=== PATIENT | male | born 1975 | race Caucasian/White ===

== ENCOUNTER 2018-07-03 15:44 | Emergency (ER) | payer OTHER ==
[2018-07-03 15:49] VITALS: BP 147/98; PULSE 100; RESP 18; TEMP 98.2
--- NOTE | 2018-07-03 16:35 | ED ---
General Adult HPI - General Chief complaint: Skin/Abscess/Foreign Body Stated complaint: bump on hand Time Seen by Provider: 07/03/18 15:51 Source: patient, RN notes reviewed, old records reviewed Mode of arrival: ambulatory Limitations: no limitations - History of Present Illness Initial comments: 43-year-old male patient no pertinent past medical history presents to ED with a painful mass in his right hand between his first and second digit and in the interwebbing. Patient states that is mildly tender to the touch. Patient denies any erythema, drainage, any other areas of pain. Patient has full range of motion hand. Patient has no other complaints. Systemic: Pt denies fatigue, fever/chills, rash. Pt denies weakness, night sweats, weight loss. Neuro: Pt denies headache, visual disturbances, syncope or pre-syncope. HEENT: Pt denies ocular discharge or irritation, otalgia, rhinorrhea, pharyngitis or notable lymphadenopathy. Cardiopulmonary: Pt denies chest pain, SOB, heart palpitations, dyspnea on exertion. Abdominal/GI: Pt denies abdominal pain, n/v/d. : Pt denies dysuria, burning w/ urination, frequency/urgency. Denies new onset urinary or bowel incontinence. MSK: Pt denies loss of strength or function in extremities. Neuro: Pt denies new onset weakness, paresthesias. - Related Data Previous Rx's Medication Instructions Recorded Ibuprofen [Motrin] 600 mg PO Q6HR PRN #40 day 07/03/18 Allergies Allergy/AdvReac Type Severity Reaction Status Date / Time No Known Allergies Allergy Verified 07/03/18 15:49 Review of Systems ROS Statement: Those systems with pertinent positive or pertinent negative responses have been documented in the HPI. ROS Other: All systems not noted in ROS Statement are negative. Past Medical History Past Medical History: Hypertension History of Any Multi-Drug Resistant Organisms: None Reported Past Surgical History: No Surgical Hx Reported Past Psychological History: No Psychological Hx Reported Smoking Status: Current every day smoker Past Alcohol Use History: Rare Past Drug Use History: None Reported General Exam - General Exam Comments Initial Comments: Constitutional: NAD, AOX3, Pt has pleasant affect. HEENT: NC/AT, trachea midline, neck supple, no lymphadenopathy. Posterior pharynx non erythematous, without exudates. External ears appear normal, without discharge. Mucous membranes moist. Eyes PERRLA, EOM intact. There is no scleral icterus. No pallor noted. Cardiopulmonary: RRR, no murmurs, rubs or gallops, no JVD noted. Lungs CTAB in anterior and posterior garzon. No peripheral edema. Abdominal exam: Abdomen soft and non-distended. Abdomen non-tender to palpation in all 4 quadrants. Bowel sounds active in LLQ. No hepatosplenomegaly. No ecchymosis Neuro: CN II-XII grossly intact. No nuchal rigidity. MSK: Approximately 2 cm soft mass noted on right hand between first and second digit, it is reducible, mildly tender to palpation, no erythema warmth or discharge. Patient does have some tenderness at the MCP joint of his thumb. Patient has no other areas of tenderness and hand. No erythema or warmth and hand. Sensation intact, capillary refill less than 2 seconds. No posterior calf tenderness bilaterally, homans sign negative bilaterally. Posterior tibialis and radial pulse +2 bilaterally. Sensation intact in upper and lower extremities. Full active ROM in upper and lower extremities, 5/5 stregnth. Limitations: no limitations Course Vital Signs 07/03/18 07/03/18 15:46 17:17 Temperature 98.2 F 98.2 F Pulse Rate 100 100 Respiratory 18 18 Rate Blood Pressure 147/98 147/98 O2 Sat by Pulse 97 97 Oximetry Medical Decision Making - Medical Decision Making 43-year-old male patient no pertinent past medical history presents to ED with a painful mass in his right hand between his first and second digit and in the interwebbing. Patient states that is mildly tender to the touch. Patient denies any erythema, drainage, any other areas of pain. Patient has full range of motion hand. Patient has no other complaints. Pt VSS, afebrile. Physical exam displayed: Approximately 2 cm soft mass noted on right hand between first and second digit, it is reducible, mildly tender to palpation, no erythema warmth or discharge. Patient does have some tenderness at the MCP joint of his thumb. Patient has no other areas of tenderness and hand. No erythema or warmth and hand. Sensation intact, capillary refill less than 2 seconds. 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 Findings were explained to patient length. Patient verbalized understanding. Patient to follow up with hand surgeon. Patient additionally referred to primary care provider. Patient will call these referrals tomorrow. Discussed parameters for patient to return to ED, patient verbalized understanding. Case discussed with Dr. Quiroz. Disposition Clinical Impression: Cyst Disposition: HOME SELF-CARE Condition: Stable Instructions (If sedation given, give patient instructions): Osteoarthritis (ED ) Additional Instructions: Patient to adhere to previously discussed treatment plan and will take medication(s) as directed. Patient to follow up with PCP in 1-2 days. Patient to return to ED if symptoms do not improve. Prescriptions: Ibuprofen [Motrin] 600 mg PO Q6HR PRN #40 day PRN Reason: Pain Is patient prescribed a controlled substance at d/c from ED?: No Referrals: None,Stated [Primary Care Provider] - 1-2 days [facility] Cl[facility]rios [NON-STAFF] - 1-2 days Barry Sanford DO [Medical Doctor] - 1-2 days Time of Disposition: 17:06
--- NOTE | 2018-07-03 16:38 | XR ---
Left hand HISTORY: Probable lump between first and second digits 3 views of the left hand Joint spaces and alignment are maintained. No radiopaque foreign body. 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 There is some remodeling of the radiocarpal joint. No fracture or disl ocation. IMPRESSION: Mild arthropathy changes.
== END 2018-07-03 17:19 | disposition home or self-care (01) ==
LOC: EC 15:44
DX: L72.9 Follicular cyst of the skin and subcutaneous tissue, unspecified (principal); F17.200 Nicotine dependence, unspecified, uncomplicated
CPT/HCPCS: 99283

== ENCOUNTER 2018-08-08 18:22 | Emergency (ER) | payer OTHER ==
[2018-08-08 18:30] VITALS: TEMP 97.7
[2018-08-08] MEDS ORDERED: SODIUM CHLORIDE 0.9% 2,000 ML IV ONE (18:44)
[2018-08-08] MEDS ORDERED: SODIUM CHLORIDE 0.9% 1,000 ML IV SCH (18:45)
[2018-08-08] MEDS: SODIUM CHLORIDE 0.9% 1,000 ML IV SCH ×2 (18:58→18:59)
[2018-08-08] MEDS ORDERED: SODIUM CHLORIDE 0.9% 1,000 ML with MVI, ADULT NO.4 WITH VIT K 10 ML, THIAMINE 100 MG, F... IV ONE ×4 (19:00)
[2018-08-08 19:34] LABS: ALT 21 U/L (21-72); AST 30 U/L (17-59); Alkaline Phosphatase 55 U/L (38-126); Amylase 56 U/L (30-110); Anion Gap 9 mmol/L; Blood Urea Nitrogen 8 mg/dL (9-20); Calcium 8.5 mg/dL (8.4-10.2); Carbon Dioxide 27 mmol/L (22-30); Chloride 110 mmol/L (98-107); Glucose 98 mg/dL (74-99); Lipase 61 U/L (23-300); Magnesium 2.1 mg/dL (1.6-2.3); Potassium 4.2 mmol/L (3.5-5.1); Sodium 146 mmol/L (137-145); Total Bilirubin 0.3 mg/dL (0.2-1.3); Total Protein 6.1 g/dL (6.3-8.2)
--- NOTE | 2018-08-08 19:36 | ED ---
Alcohol HPI - General Source: patient, RN notes reviewed, old records reviewed Mode of arrival: EMS Limitations: no limitations <Dana Lane - Last Filed: 08/08/18 19:33> <Urmila Tellez - Last Filed: 08/09/18 00:57> - General Chief Complaint: Alcohol Stated Complaint: ETOH Time Seen by Provider: 08/08/18 18:23 - History of Present Illness Initial Comments: Patient is a 43-year-old male presents emergency department today after being found on the streets with chief complaint of alcohol intoxication. Patient reports that he is currently homeless and staying at a [facility]. Patient has had no nausea or vomiting. He denies any falls or head injury. Patient states that he does not drink daily. Patient states that he has had 2 fifths of alcohol today. (Dana Lane) - Related Data Home Medications Medication Instructions Recorded Confirmed No Known Home Medications 08/08/18 08/08/18 Allergies Allergy/AdvReac Type Severity Reaction Status Date / Time No Known Allergies Allergy Verified 08/08/18 18:42 Review of Systems ROS Other: All systems not noted in ROS Statement are negative. <Dana Lane - Last Filed: 08/08/18 19:33> ROS Other: All systems not noted in ROS Statement are negative. <Urmila Tellez - Last Filed: 08/09/18 00:57> ROS Statement: Those systems with pertinent positive or pertinent negative responses have been documented in the HPI. Past Medical History Past Medical History: Hypertension History of Any Multi-Drug Resistant Organisms: None Reported Past Surgical History: No Surgical Hx Reported Past Psychological History: No Psychological Hx Reported Smoking Status: Current every day smoker Past Alcohol Use History: Occasional Past Drug Use History: None Reported <Dana Lane - Last Filed: 08/08/18 19:33> General Exam Limitations: no limitations General appearance: alert, appears intoxicated Head exam: Present: atraumatic, normocephalic, normal inspection Eye exam: Present: normal appearance, PERRL, EOMI. Absent: scleral icterus, conjunctival injection, periorbital swelling ENT exam: Present: normal exam, mucous membranes moist Neck exam: Present: normal inspection. Absent: tenderness, meningismus, lymphadenopathy Respiratory exam: Present: normal lung sounds bilaterally. Absent: respiratory distress, wheezes, rales, rhonchi, stridor Cardiovascular Exam: Present: regular rate, normal rhythm, normal heart sounds. Absent: systolic murmur, diastolic murmur, rubs, gallop, clicks GI/Abdominal exam: Present: soft, normal bowel sounds. Absent: distended, tenderness, guarding, rebound, rigid Extremities exam: Present: normal inspection, full ROM, normal capillary refill. Absent: tenderness, pedal edema, joint swelling, calf tenderness Back exam: Present: normal inspection Neurological exam: Present: alert, oriented X3, CN II-XII intact Psychiatric exam: Present: normal affect, normal mood Skin exam: Present: warm, dry, intact, normal color. Absent: rash <Dana Lane - Last Filed: 08/08/18 19:33> - General Exam Comments Initial Comments: This is a 43-year-old male. Alert and oriented. No distress. (Dana Lane) Course Vital Signs 08/08/18 08/08/18 18:24 18:29 Temperature 97.7 F Pulse Rate 88 Respiratory 18 Rate Blood Pressure 122/89 O2 Sat by Pulse 98 Oximetry Medical Decision Making - Radiology Data Radiology results: report reviewed <Dana Lane - Last Filed: 08/08/18 19:33> - Lab Data Result diagrams: 08/08/18 19:10 08/08/18 19:10 <Urmila Tellez - Last Filed: 08/09/18 00:57> - Medical Decision Making Patient is a 43-year-old male presents raise department today for alcohol intoxication. He is currently staying at a [facility]. Patient is acutely intoxicated. No head or neck injuries. He is alert and talkative. Lab work was obtained. Given 2 L bolus and started on banana bag. (Dana Lane) 43-year-old male patient presented to the emergency department today for alcohol intoxication. He was sober at 0030. Upon reevaluation he is alert and does frequently being discharged at this time. He is instructed to follow-up with his primary care physician as needed. Return parameters discussed in detail. He verbalizes understanding and agrees with this plan. (Urmila Tellez) - Lab Data Lab Results 08/08/18 08/08/18 Range/Units 19:10 19:10 WBC 4.5 (3.8-10.6) k/uL RBC 4.59 (4.30-5.90) m/uL Hgb 14.3 (13.0-17.5) gm/dL Hct 43.7 (39.0-53.0) % MCV 95.4 (80.0-100.0) fL MCH 31.2 (25.0-35.0) pg MCHC 32.7 (31.0-37.0) g/dL RDW 12.9 (11.5-15.5) % Plt Count 170 (150-450) k/uL Neutrophils % (Manual) 43 % Lymphocytes % (Manual) 46 % Monocytes % (Manual) 9 % Eosinophils % (Manual) 2 % Neutrophils # (Manual) 1.94 (1.3-7.7) k/uL Lymphocytes # (Manual) 2.07 (1.0-4.8) k/uL Monocytes # (Manual) 0.41 (0-1.0) k/uL Eosinophils # (Manual) 0.09 (0-0.7) k/uL Nucleated RBCs 0 (0-0) /100 WBC Manual Slide Review Performed Sodium 146 H (137-145) mmol/L Potassium 4.2 (3.5-5.1) mmol/L Chloride 110 H (98-107) mmol/L Carbon Dioxide 27 (22-30) mmol/L Anion Gap 9 mmol/L BUN 8 L (9-20) mg/dL Creatinine 0.67 (0.66-1.25) mg/dL Est GFR (CKD-EPI)AfAm >90 (>60 ml/min/1.73 sqM) Est GFR (CKD-EPI)NonAf >90 (>60 ml/min/1.73 sqM) Glucose 98 (74-99) mg/dL Calcium 8.5 (8.4-10.2) mg/dL Magnesium 2.1 (1.6-2.3) mg/dL Total Bilirubin 0.3 (0.2-1.3) mg/dL AST 30 (17-59) U/L ALT 21 (21-72) U/L Alkaline Phosphatase 55 (38-126) U/L Total Protein 6.1 L (6.3-8.2) g/dL Albumin 4.0 (3.5-5.0) g/dL Amylase 56 (30-110) U/L Lipase 61 (23-300) U/L Disposition <Dana Lane - Last Filed: 08/08/18 19:33> Is patient prescribed a controlled substance at d/c from ED?: No Time of Disposition: 00:50 <Urmila Tellez - Last Filed: 08/09/18 00:57> Clinical Impression: Alcohol intoxication Disposition: HOME SELF-CARE Condition: Good Instructions (If sedation given, give patient instructions): Alcohol Intoxication (ED) Additional Instructions: Follow-up with your primary care physician as needed. Return to the emergency department for any new, worsening, or concerning symptoms Referrals: None,Stated [Primary Care Provider] - 1-2 days
[2018-08-08 19:41] LABS: HCT 43.7 % (39.0-53.0); HGB 14.3 gm/dL (13.0-17.5); MCH 31.2 pg (25.0-35.0); MCHC 32.7 g/dL (31.0-37.0); MCV 95.4 fL (80.0-100.0); Platelet Count 170 k/uL (150-450); RBC 4.59 m/uL (4.30-5.90); RDW 12.9 % (11.5-15.5); WBC 4.5 k/uL (3.8-10.6)
[2018-08-08 20:11] LABS: Eosinophils # (M) 0.09 k/uL (0-0.7); Lymphocytes # (M) 2.07 k/uL (1.0-4.8); Monocytes # (M) 0.41 k/uL (0-1.0); Neutrophils # (M) 1.94 k/uL (1.3-7.7); Neutrophils % (M) 43 %; Nucleated Red Blood Cells 0 /100 WBC (0-0); Total Cells Counted 100
[2018-08-09 01:09] VITALS: BP 102/60; PULSE 82; RESP 16
== END 2018-08-09 01:08 | disposition home or self-care (01) ==
LOC: EC 18:22
DX: F10.129 Alcohol abuse with intoxication, unspecified (principal); F17.200 Nicotine dependence, unspecified, uncomplicated; Z59.0 Homelessness
CPT/HCPCS: 36415; 80053; 82150; 83690; 83735; 85025; 99284; 96365; 96366 ×5; J3411

== ENCOUNTER 2018-10-07 12:10 | Emergency (ER) | payer OTHER ==
[2018-10-07 12:19] VITALS: TEMP 98.1
--- NOTE | 2018-10-07 12:25 | ED ---
Chest Pain HPI - General Chief Complaint: Chest Pain Stated Complaint: chest pain Time Seen by Provider: 10/07/18 12:23 Source: patient, RN notes reviewed, old records reviewed Mode of arrival: ambulatory Limitations: no limitations - History of Present Illness Initial Comments: This is a 43-year-old male the ER for evaluation. Patient has history of high blood pressure coming in for palpitations and chest pain. Patient feels like his heart is racing. No shortness of breath no diaphoresis currently no recent change in medications no drugs blood patient does admit to significant alcohol use last night, does feel dehydrated. MD Complaint: chest pain -: hour(s) Onset: during rest Pain Location: left chest Severity: mild Severity scale (1-10): 2 Quality: aching Consistency: constant Improves With: nothing Worsens With: nothing Anginal Symptoms: dyspnea Other Symptoms: palpitations Treatments Prior to Arrival: none - Related Data Home Medications Medication Instructions Recorded Confirmed Aspirin EC [Ecotrin Low Dose] 81 mg PO DAILY 10/07/18 10/07/18 Allergies Allergy/AdvReac Type Severity Reaction Status Date / Time No Known Allergies Allergy Verified 10/07/18 13:34 Review of Systems ROS Statement: Those systems with pertinent positive or pertinent negative responses have been documented in the HPI. ROS Other: All systems not noted in ROS Statement are negative. EKG Findings - EKG Comments: EKG Findings:: EKG shows sinus tachycardia rate of 112, [place] 150, QRS 02, QTc 452 Past Medical History Past Medical History: Hypertension History of Any Multi-Drug Resistant Organisms: None Reported Past Surgical History: No Surgical Hx Reported Past Psychological History: No Psychological Hx Reported Smoking Status: Current every day smoker Past Alcohol Use History: Occasional Past Drug Use History: None Reported General Exam Limitations: no limitations General appearance: alert, in no apparent distress Head exam: Present: atraumatic, normocephalic, normal inspection Eye exam: Present: normal appearance, PERRL, EOMI. Absent: scleral icterus, conjunctival injection, periorbital swelling ENT exam: Present: normal exam, mucous membranes moist Neck exam: Present: normal inspection. Absent: tenderness, meningismus, lymphadenopathy Respiratory exam: Present: normal lung sounds bilaterally. Absent: respiratory distress, wheezes, rales, rhonchi, stridor Cardiovascular Exam: Present: normal rhythm, tachycardia, normal heart sounds. Absent: systolic murmur, diastolic murmur, rubs, gallop, clicks GI/Abdominal exam: Present: soft, normal bowel sounds. Absent: distended, tenderness, guarding, rebound, rigid Extremities exam: Present: normal inspection, full ROM, normal capillary refill. Absent: tenderness, pedal edema, joint swelling, calf tenderness Back exam: Present: normal inspection Neurological exam: Present: alert, oriented X3, CN II-XII intact Psychiatric exam: Present: normal affect, normal mood Skin exam: Present: warm, dry, intact, normal color. Absent: rash Course Vital Signs 10/07/18 10/07/18 12:17 13:30 Temperature 98.1 F Pulse Rate 111 H 82 Respiratory 20 18 Rate Blood Pressure 126/78 132/89 O2 Sat by Pulse 96 98 Oximetry - Reevaluation(s) Reevaluation #1: 10/07/18 12:59 Medical records reviewed Chest Pain MDM - MDM 43 male presenting with palpitations and shortness of breath, patient does admit to alcohol intoxication last night, heart rate significantly improved with fluids here in the ER patient can be discharged home Disposition Clinical Impression: Tachycardia, Palpitations Disposition: HOME SELF-CARE Condition: Good Instructions (If sedation given, give patient instructions): Heart Palpitations (ED) Is patient prescribed a controlled substance at d/c from ED?: No Referrals: None,Stated [Primary Care Provider] - 1-2 days
[2018-10-07 13:00] LABS: Basophils # (A) 0.1 k/uL (0-0.2); Basophils % (A) 1 %; Eosinophils # (A) 0.1 k/uL (0-0.7); Eosinophils % (A) 2 %; HCT 44.7 % (39.0-53.0); HGB 14.7 gm/dL (13.0-17.5); Lymphocytes # (A) 1.7 k/uL (1.0-4.8); Lymphocytes % (A) 27 %; MCH 30.6 pg (25.0-35.0); MCHC 32.8 g/dL (31.0-37.0); MCV 93.2 fL (80.0-100.0); Mean Platelet Volume 7.6; Monocytes # (A) 0.3 k/uL (0-1.0); Monocytes % (A) 5 %; Neutrophils # (A) 4.1 k/uL (1.3-7.7); Neutrophils % (A) 64 %; Platelet Count 182 k/uL (150-450); RBC 4.79 m/uL (4.30-5.90); RDW 14.7 % (11.5-15.5); WBC 6.5 k/uL (3.8-10.6)
[2018-10-07] MEDS ORDERED: SODIUM CHLORIDE 0.9% 1,000 ML IV STA ×2 (13:03)
[2018-10-07] MEDS ORDERED: SODIUM CHLORIDE 0.9% 500 ML 500 ML IV STA (13:03)
[2018-10-07 13:10] LABS: ALT 20 U/L (21-72); AST 35 U/L (17-59); Albumin 4.4 g/dL (3.5-5.0); Alkaline Phosphatase 64 U/L (38-126); Anion Gap 13 mmol/L; Blood Urea Nitrogen 9 mg/dL (9-20); Calcium 9.2 mg/dL (8.4-10.2); Carbon Dioxide 21 mmol/L (22-30); Chloride 108 mmol/L (98-107); Glucose 101 mg/dL (74-99); Lipase 55 U/L (23-300); Magnesium 1.6 mg/dL (1.6-2.3); Potassium 3.9 mmol/L (3.5-5.1); Sodium 142 mmol/L (137-145); Total Bilirubin 0.5 mg/dL (0.2-1.3); Total Protein 6.7 g/dL (6.3-8.2)
[2018-10-07 13:12] LABS: D-Dimer 0.36 mg/L FEU (<0.60); INR 0.9 (<1.2); Partial Thromboplastin Time 24.4 sec (22.0-30.0); Prothrombin Time 9.5 sec (9.0-12.0)
--- NOTE | 2018-10-07 13:13 | XR ---
EXAMINATION TYPE: XR chest 2V DATE OF EXAM: 10/07/2018 COMPARISON: NONE HISTORY: Chest pain TECHNIQUE: Frontal and lateral views of the chest are obtained. FINDINGS: There is no focal air space opacity, pleural effusion, or pneumothorax seen. The cardiac silhouette size is within normal limits. The osseous structures are intact. There are overlying car diac leads. Prominent lung volume could be indicative of underlying COPD. IMPRESSION: No acute cardiopulmonary process.
[2018-10-07 13:37] VITALS: RESP 18
[2018-10-07 15:34] VITALS: BP 136/87; PULSE 96
== END 2018-10-07 15:34 | disposition home or self-care (01) ==
LOC: EC 12:10
DX: R00.2 Palpitations (principal); R00.0 Tachycardia, unspecified; F10.129 Alcohol abuse with intoxication, unspecified; I10 Essential (primary) hypertension; F17.200 Nicotine dependence, unspecified, uncomplicated; Z79.82 Long term (current) use of aspirin
CPT/HCPCS: 36415; 71046; 80053; 83690; 83735; 83880; 84484; 85025; 85379; 85610; 85730; 93005; 96360; 96361; 99285

== ENCOUNTER 2019-01-29 19:13 | Emergency (ER) | payer OTHER ==
[2019-01-29] MEDS ORDERED: THIAMINE 100 MG/ML 2 ML VIAL IM STA (19:37)
[2019-01-29] MEDS ORDERED: MULTIVITAMINS, THERA 1 EACH TAB PO STA (19:37)
[2019-01-29] MEDS ORDERED: FOLIC ACID 1 MG TAB PO STA (19:37)
[2019-01-29] MEDS ORDERED: SODIUM CHLORIDE 0.9% 1,000 ML IV STA (19:37)
[2019-01-29] MEDS ORDERED: NALOXONE 0.4 MG/ML 1 ML VIAL IV STA (19:40)
--- NOTE | 2019-01-29 19:40 | ED ---
General Adult HPI - General Chief complaint: Alcohol Stated complaint: ETOH Time Seen by Provider: 01/29/19 19:21 Source: patient, police, EMS Mode of arrival: EMS Limitations: no limitations - History of Present Illness Initial comments: Dictation was produced using [employer] dictation software. please excuse any grammatical, word or spelling errors. Chief Complaint: 43-year-old male presents with EtOH intoxication. History of Present Illness: 43-year-old male. Patient has past medical history hypertension is brought in by EMS and law enforcement for EtOH intoxication. It is unclear how patient rather emergency department. He states he drinks heavily every day. Patient has no other complaints at this time. Denies any fall. His friends brought to the emergency department for opiate overdose. Patient denies any respiratory distress at this time. He denies any drug use. The ROS documented in this emergency department record has been reviewed and confirmed by me. Those systems with pertinent positive or negative responses have been documented in the HPI. All other systems are other negative and/or noncontributory. PHYSICAL EXAM: General Impression: Alert and oriented x3, not in acute distress was EtOH HEENT: Normocephalic atraumatic, extra-ocular movements intact, pupils equal and reactive to light bilaterally, mucous membranes moist. Cardiovascular: Heart regular rate and rhythm, S1&S2 audible, no murmurs, rubs or gallops Chest: Lungs clear to auscultation bilaterally, no rhonchi, no wheeze, no rales Abdomen: Bowel sounds present, abdomen soft, non-tender, non-distended, no organomegaly Musculoskeletal: Pulses present and equal in all extremities, no peripheral edema Motor: no focal deficits noted Neurological: CN II-XII grossly intact, no focal motor or sensory deficits noted Skin: Intact with no visualized rashes Psych: Normal affect and mood ED course: 43 y Old male presents with EtOH intoxication. Signs upon arrival are within acceptable limits. Clinical presentation not consistent with opiate toxidrome. He does however appear significantly EtOH intoxicated. His examin ation is grossly benign. After evaluation obtained. CBC unremarkable. Sodium 147 is given intravenous fluids. Patient also given thiamine, folic acid multivitamin. Patient's alcohol is 296. Rest metabolic panel is unremarkable. Patient given some negative with no changes in mental status. Given patient's degree of intoxication will admit patient to inpatient. scheduled CIWA scale ordered. discussed patient case with Suzanna Puente of Dr. Zimmer's group was on 2 separate patient care. - Related Data Home Medications Medication Instructions Recorded Confirmed Atenolol [Tenormin] 25 mg PO DAILY 01/29/19 01/29/19 Lisinopril [Zestril] 10 mg PO DAILY 01/29/19 01/29/19 Allergies Allergy/AdvReac Type Severity Reaction Status Date / Time No Known Allergies Allergy Verified 01/29/19 19:52 Review of Systems ROS Statement: Those systems with pertinent positive or pertinent negative responses have been documented in the HPI. ROS Other: All systems not noted in ROS Statement are negative. Past Medical History Past Medical History: Hypertension History of Any Multi-Drug Resistant Organisms: None Reported Past Surgical History: No Surgical Hx Reported Past Psychological History: No Psychological Hx Reported Smoking Status: Current every day smoker Past Alcohol Use History: Daily, Heavy Past Drug Use History: None Reported General Exam Limitations: no limitations Course Vital Signs 01/29/19 01/29/19 19:15 19:41 Temperature 98 F Pulse Rate 99 Respiratory 14 10 L Rate Blood Pressure 124/72 O2 Sat by Pulse 98 Oximetry Medical Decision Making - Lab Data Result diagrams: 01/29/19 19:26 01/29/19 19:26 Lab Results 01/29/19 01/29/19 Range/Units 19:26 19:26 WBC 7.9 (3.8-10.6) k/uL RBC 4.47 (4.30-5.90) m/uL Hgb 14.1 (13.0-17.5) gm/dL Hct 41.2 (39.0-53.0) % MCV 92.3 (80.0-100.0) fL MCH 31.5 (25.0-35.0) pg MCHC 34.2 (31.0-37.0) g/dL RDW 14.1 (11.5-15.5) % Plt Count 208 (150-450) k/uL Neutrophils % 49 % Lymphocytes % 40 % Monocytes % 5 % Eosinophils % 2 % Basophils % 2 % Neutrophils # 3.9 (1.3-7.7) k/uL Lymphocytes # 3.2 (1.0-4.8) k/uL Monocytes # 0.4 (0-1.0) k/uL Eosinophils # 0.2 (0-0.7) k/uL Basophils # 0.1 (0-0.2) k/uL Sodium 147 H (137-145) mmol/L Potassium 3.6 (3.5-5.1) mmol/L Chloride 112 H (98-107) mmol/L Carbon Dioxide 26 (22-30) mmol/L Anion Gap 9 mmol/L BUN 8 L (9-20) mg/dL Creatinine 1.08 (0.66-1.25) mg/dL Est GFR (CKD-EPI)AfAm >90 (>60 ml/min/1.73 sqM) Est GFR (CKD-EPI)NonAf 84 (>60 ml/min/1.73 sqM) Glucose 101 H (74-99) mg/dL Calcium 8.5 (8.4-10.2) mg/dL Magnesium 1.9 (1.6-2.3) mg/dL Total Bilirubin 0.1 L (0.2-1.3) mg/dL AST 33 (17-59) U/L ALT 16 L (21-72) U/L Alkaline Phosphatase 59 (38-126) U/L Total Protein 5.7 L (6.3-8.2) g/dL Albumin 3.6 (3.5-5.0) g/dL Serum Alcohol 296 H* mg/dL Disposition Clinical Impression: Alcoholic intoxication Disposition: ADMITTED IP TO THIS HOSP Condition: Fair Referrals: None,Stated [Primary Care Provider] - 1-2 days Decision Time: 21:04
[2019-01-29 20:17] LABS: Basophils # (A) 0.1 k/uL (0-0.2); Basophils % (A) 2 %; Eosinophils # (A) 0.2 k/uL (0-0.7); Eosinophils % (A) 2 %; HCT 41.2 % (39.0-53.0); HGB 14.1 gm/dL (13.0-17.5); Lymphocytes # (A) 3.2 k/uL (1.0-4.8); Lymphocytes % (A) 40 %; MCH 31.5 pg (25.0-35.0); MCHC 34.2 g/dL (31.0-37.0); MCV 92.3 fL (80.0-100.0); Mean Platelet Volume 7.4; Monocytes # (A) 0.4 k/uL (0-1.0); Monocytes % (A) 5 %; Neutrophils # (A) 3.9 k/uL (1.3-7.7); Neutrophils % (A) 49 %; Platelet Count 208 k/uL (150-450); RBC 4.47 m/uL (4.30-5.90); RDW 14.1 % (11.5-15.5); WBC 7.9 k/uL (3.8-10.6)
[2019-01-29 20:18] LABS: ALT 16 U/L (21-72); AST 33 U/L (17-59); African American GFR (CKD) >90 (>60 ml/min/1.73 sqM); Albumin 3.6 g/dL (3.5-5.0); Alkaline Phosphatase 59 U/L (38-126); Anion Gap 9 mmol/L; Blood Urea Nitrogen 8 mg/dL (9-20); Calcium 8.5 mg/dL (8.4-10.2); Carbon Dioxide 26 mmol/L (22-30); Chloride 112 mmol/L (98-107); Glucose 101 mg/dL (74-99); Magnesium 1.9 mg/dL (1.6-2.3); Potassium 3.6 mmol/L (3.5-5.1); Sodium 147 mmol/L (137-145); Total Bilirubin 0.1 mg/dL (0.2-1.3); Total Protein 5.7 g/dL (6.3-8.2)
[2019-01-29 20:20] LABS: Alcohol 296 mg/dL
[2019-01-29] MEDS ORDERED: NICOTINE 21MG/24HR PATCH TRANSDERM STA (21:39)
[2019-01-29] MEDS ORDERED: LORazepam 2 MG/ML INJ IV STA (21:39)
[2019-01-30 05:50] VITALS: BP 115/72; PULSE 94; RESP 18; TEMP 98.2
== END 2019-01-30 06:16 | disposition other institution (70) ==
LOC: EC 19:13
DX: F10.129 Alcohol abuse with intoxication, unspecified (principal); T40.601A Poisoning by unspecified narcotics, accidental (unintentional), initial encounter; I10 Essential (primary) hypertension; F17.200 Nicotine dependence, unspecified, uncomplicated; Z79.899 Other long term (current) drug therapy
CPT/HCPCS: 82075; 36415; 80053; 83735; 85025; 99285; 96374; 96361 ×3; G0480; S4990; J2310; 80320

== ENCOUNTER 2019-05-25 21:25 | Emergency (ER) | payer OTHER ==
--- NOTE | 2019-05-25 21:37 | ED ---
General Adult HPI - General Source: patient, police, RN notes reviewed Mode of arrival: ambulatory Limitations: no limitations <Justyn Mcgarry - Last Filed: 05/25/19 21:36> <Rocco Loera - Last Filed: 05/26/19 06:33> - General Stated complaint: Petition Time Seen by Provider: 05/25/19 21:28 - History of Present Illness Initial comments: This a 44-year-old male presents emergency Department with police for evaluation. Patient was found asleep in someone's driveway and upon evaluation the patient's he was found to be severely intoxicated, having discussions with people not present. Patient became belligerent and argumentative with police in which they brought him here for evaluation. Patient does admit to alcohol use denies drug use no physical complaints. (Justyn Mcgarry) - Related Data Home Medications Medication Instructions Recorded Confirmed Atenolol [Tenormin] 25 mg PO DAILY 01/29/19 05/25/19 Lisinopril [Zestril] 10 mg PO DAILY 01/29/19 05/25/19 Allergies Allergy/AdvReac Type Severity Reaction Status Date / Time No Known Allergies Allergy Verified 05/25/19 22:41 Review of Systems ROS Other: All systems not noted in ROS Statement are negative. <Justyn Mcgarry - Last Filed: 05/25/19 21:36> ROS Other: All systems not noted in ROS Statement are negative. <Rocco Loera - Last Filed: 05/26/19 06:33> ROS Statement: Those systems with pertinent positive or pertinent negative responses have been documented in the HPI. Past Medical History Past Medical History: Hypertension History of Any Multi-Drug Resistant Organisms: None Reported Past Surgical History: No Surgical Hx Reported Past Psychological History: No Psychological Hx Reported Smoking Status: Current every day smoker Past Alcohol Use History: Daily, Heavy Past Drug Use History: None Reported <Justyn Mcgarry - Last Filed: 05/25/19 21:36> General Exam General appearance: alert, in no apparent distress, appears intoxicated Head exam: Present: atraumatic, normocephalic, normal inspection Eye exam: Present: normal appearance, PERRL, EOMI. Absent: scleral icterus, conjunctival injection, periorbital swelling ENT exam: Present: normal exam, mucous membranes moist Neck exam: Present: normal inspection, full ROM. Absent: tenderness, meningismus, lymphadenopathy Respiratory exam: Present: normal lung sounds bilaterally. Absent: respiratory distress, wheezes, rales, rhonchi, stridor Cardiovascular Exam: Present: regular rate, normal rhythm, normal heart sounds. Absent: systolic murmur, diastolic murmur, rubs, gallop, clicks GI/Abdominal exam: Present: soft, normal bowel sounds. Absent: distended, tenderness, guarding, rebound, rigid Neurological exam: Present: alert, oriented X3 Psychiatric exam: Present: agitated Skin exam: Present: warm, dry, intact, normal color. Absent: rash <Justyn Mcgarry - Last Filed: 05/25/19 21:36> Course Vital Signs 05/25/19 05/26/19 21:35 04:54 Temperature 98.6 F Pulse Rate 110 H 97 Respiratory 18 18 Rate Blood Pressure 173/96 166/100 O2 Sat by Pulse 98 97 Oximetry Medical Decision Making <Rocco Loera - Last Filed: 05/26/19 06:33> - Medical Decision Making Patient is a 44-year-old man brought to have evaluation. On arrival patient is intoxicated and belligerent. I did reevaluate patient's after clinical sobriety. The patient is currently polite and he does express remorse over earlier behavior. He is not making any threatening statements and denies any homicidal or suicidal intent. Patient not manifesting any hallucinatory behavior or responding to internal stimuli. At this point he wishes to be discharged and there did not appear to be criteria to hold him against his will. (Rocco Loera) - Lab Data Lab Results 05/25/19 Range/Units 22:53 Urine Opiates Screen Not Detected (NotDetected) Ur Oxycodone Screen Not Detected (NotDetected) Urine Methadone Screen Not Detected (NotDetected) Ur Propoxyphene Screen Not Detected (NotDetected) Ur Barbiturates Screen Not Detected (NotDetected) U Tricyclic Antidepress Not Detected (NotDetected) Ur Phencyclidine Scrn Not Detected (NotDetected) Ur Amphetamines Screen Not Detected (NotDetected) U Methamphetamines Scrn Not Detected (NotDetected) U Benzodiazepines Scrn Not Detected (NotDetected) Urine Cocaine Screen Not Detected (NotDetected) U Marijuana (THC) Screen Not Detected (NotDetected) Disposition <Justyn Mcgarry - Last Filed: 05/25/19 21:36> Is patient prescribed a controlled substance at d/c from ED?: No <Rocco Loera - Last Filed: 05/26/19 06:33> Clinical Impression: Alcoholic intoxication Disposition: HOME SELF-CARE Condition: Good Instructions (If sedation given, give patient instructions): Alcohol Intoxication (ED) Referrals: None,Stated [Primary Care Provider] - 1-2 days
[2019-05-25 21:46] VITALS: RESP 18; TEMP 98.6
[2019-05-25 23:59] LABS: Amphetamine Screen,Urine Not Detected (NotDetected); Barbiturate Screen,Urine Not Detected (NotDetected); Benzodiazepines Screen,Urine Not Detected (NotDetected); Cocaine Screen,Urine Not Detected (NotDetected); Methadone Screen, Urine Not Detected (NotDetected); Opiate Screen,Urine Not Detected (NotDetected); Oxycodone Screen, Urine Not Detected (NotDetected); Phencyclidine Screen,Urine Not Detected (NotDetected); Tricyclic Antidepressant,Urine Not Detected (NotDetected); Urn Cannabinoid Scrn Not Detected (NotDetected)
[2019-05-26 04:58] VITALS: BP 166/100; PULSE 97
[2019-05-26] MEDS ORDERED: LORazepam 1 MG TAB PO STA (05:03)
[2019-05-26] MEDS ORDERED: LISINOPRIL 10 MG TAB PO STA (05:03)
== END 2019-05-26 06:51 | disposition home or self-care (01) ==
LOC: EC 21:25
DX: F10.129 Alcohol abuse with intoxication, unspecified (principal); R45.1 Restlessness and agitation; I10 Essential (primary) hypertension; F17.200 Nicotine dependence, unspecified, uncomplicated; Z79.899 Other long term (current) drug therapy
CPT/HCPCS: 80306; 82075; 99283